=== PATIENT | female | born 1965 | race Caucasian/White ===

== ENCOUNTER → 2020-08-30 | Outpatient (CLI) | payer OTHER ==
[~2020-08-30] MED LIST: ACYC-40 PO; ALPR0.254 PO; FLUO20CA19 PO; LISI-167 PO; MONT10TA6 PO; OMEP-110 PO
[2020-08-30 11:13] LABS: ALANINE AMINOTRANSFERASE 18 U/L (12-78); ALBUMIN 3.7 g/dL (3.4-5.0); ANION GAP 6 mmol/L (5-15); CALCIUM 8.7 mg/dL (8.5-10.1); CHLORIDE 108 mmol/L (98-107); CREATININE 0.61 mg/dL (0.55-1.02)
[2020-08-30 11:16] LABS: ALKALINE PHOSPHATASE 70 U/L (45-117); BILIRUBIN,TOTAL 0.3 mg/dL (0.2-1.0); TOTAL PROTEIN 6.9 g/dL (6.4-8.2)
== END | disposition home or self-care (01) ==
LOC: STAR 10:11
PROVIDERS: ATTEND Surgery
DX: Z01.812 Encounter for preprocedural laboratory examination (principal); Z20.822 Contact with and (suspected) exposure to COVID-19
CPT/HCPCS: 36415; 80053; 86800; U0003; U0005; 84432

== ENCOUNTER 2020-09-05 09:00 | Day surgery (SDC) | payer OTHER ==
[~2020-09-05] VITALS: Ht 154.9 cm; Wt 76.1 kg
[2020-09-05] MEDS ORDERED: CHLORHEXIDINE 15 ML UDC ONE (09:43)
[2020-09-05] MEDS ORDERED: CHLORHEXIDINE 15 ML UDC PO ONE (10:00)
[2020-09-05] MEDS ORDERED: LACTATED RINGERS 1,000 ML IV SCH (10:00)
[2020-09-05] MEDS ORDERED: MIDAZOLAM 1 MG/ML, 2ML ONE (10:29)
[2020-09-05] MEDS ORDERED: FENTANYL PF 250 MCG/5ML ONE (10:29)
[2020-09-05] MEDS ORDERED: ROCURONIUM 10MG/ML,5ML ONE (10:30)
[2020-09-05] MEDS ORDERED: PROPOFOL 10 MG/ML, 20ML ONE (10:30)
[2020-09-05] MEDS ORDERED: NEOSTIGMINE 1 MG/ML, 10ML ONE (10:30)
[2020-09-05] MEDS ORDERED: SUCCINYLCHOLINE 20 MG/ML, 10ML ONE (10:30)
[2020-09-05] MEDS ORDERED: CEFAZOLIN 1,000 MG ONE (10:30)
[2020-09-05] MEDS ORDERED: ONDANSETRON 2MG/ML, 2ML ONE (10:30)
[2020-09-05] MEDS ORDERED: GLYCOPYRROLATE 0.2MG/1ML, 5ML ONE (10:30)
[2020-09-05] MEDS ORDERED: DEXAMETHASONE 4 MG/ML, 1ML ONE (11:24)
[2020-09-05] MEDS ORDERED: PHENYLEPHRINE 10 MG/ML ONE (11:24)
[2020-09-05] MEDS ORDERED: EPHEDRINE 50 MG/ML, 1ML ONE (11:24)
[2020-09-05] MEDS ORDERED: morphine SULFATE 10 MG/ML, 1ML IVPush PRN (11:30)
[2020-09-05] MEDS ORDERED: HALOPERIDOL 5 MG/ML IV PRN (11:30)
[2020-09-05] MEDS ORDERED: hydrALAzine 20 MG/ML, 1ML IV PRN (11:30)
[2020-09-05] MEDS ORDERED: MEPERIDINE/PF 25MG/0.5ML IVPush PRN (11:30)
[2020-09-05] MEDS ORDERED: ACETAMINOPHEN 325 MG TABLET PO PRN (11:30)
[2020-09-05] MEDS ORDERED: PROMETHAZINE 25 MG/ML, 1ML IVPush PRN (11:30)
[2020-09-05] MEDS ORDERED: LABETALOL 5MG/ML, 20ML IV PRN (11:30)
[2020-09-05] MEDS ORDERED: HYDROmorphone 1 MG/ML, 1ML INJ IVPush PRN (11:30)
[2020-09-05] MEDS ORDERED: FENTANYL PF 100 MCG/2ML IV PRN (11:30)
[2020-09-05] MEDS ORDERED: FENTANYL PF 100 MCG/2ML ONE (12:30)
[2020-09-05] MEDS ORDERED: ACETAMINOPHEN 650 MG/20.3 ML UDC ONE (12:30)
[2020-09-05] MEDS ORDERED: OXYcodone 5 MG/5 ML ORAL.SOL UDC ONE (13:24)
[2020-09-05] MEDS ORDERED: OXYcodone 5 MG/5 ML ORAL.SOL UDC PO PRN (13:30)
[2020-09-05] MEDS ORDERED: HYDR-2214 PO (14:26)
== END 2020-09-05 14:23 | disposition home or self-care (01) ==
LOC: OUT 09:00
PROVIDERS: ATTEND Surgery
DX: E04.1 Nontoxic single thyroid nodule (principal); I10 Essential (primary) hypertension; K21.9 Gastro-esophageal reflux disease without esophagitis; F12.90 Cannabis use, unspecified, uncomplicated; Z98.890 Other specified postprocedural states; Z79.899 Other long term (current) drug therapy; Z87.891 Personal history of nicotine dependence; Z72.89 Other problems related to lifestyle
CPT/HCPCS: 60220; 88307; J0330; J0690; J1100; J2250; J2370; J2405; J2704; J2710; J3010; J7120